=== PATIENT | male | born 1985 ===

== ENCOUNTER 2017-10-31 16:28 | Emergency (ER) | payer OTHER ==
[2017-10-31 16:41] VITALS: BP 157/78; PULSE 85; RESP 18; TEMP 98.9; O2SAT 100
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
== END 2017-10-31 18:12 | disposition home or self-care (01) ==
LOC: C.ER 16:28
DX: S43.401A Unspecified sprain of right shoulder joint, initial encounter (principal); V49.9XXA Car occupant (driver) (passenger) injured in unspecified traffic accident, initial encounter; Y92.410 Unspecified street and highway as the place of occurrence of the external cause